=== PATIENT | female | born 1990 | race African-American/Black ===

== ENCOUNTER 2017-08-07 15:35 | Emergency (ER) | payer OTHER ==
[~2017-08-07] VITALS: Ht 172.7 cm; Wt 81.7 kg
[~2017-08-07 15:35] MED LIST: ACID CONTROL150 MG; BACTRIM DS TAB1 EACH PO; IBUPROFEN 600600 M1 PO; KEFLEX500 MG PO; LO-OVRAL-281 EACH PO; MACROBID 100 M100 M1 PO; NAPROSYN500 MG PO; NORCO 5-325 TA1 EACH PO; NORFLEX100 MG PO; POTASSIUM20 PO; PRENATAL DHA+C1 EACH; PROMETHAZINE-D120 ML PO; ULTRAM 50MG TAB50 MG PO; ZOFRAN4 MG PO
[2017-08-07] MEDS ORDERED: NAPROSYN500 MG PO (16:29)
== END 2017-08-07 16:38 | disposition home or self-care (01) ==
LOC: ER 15:35
DX: S60.021A Contusion of right index finger without damage to nail, initial encounter (principal); Z88.1 Allergy status to other antibiotic agents; W26.8XXA Contact with other sharp object(s), not elsewhere classified, initial encounter; Y93.E9 Activity, other interior property and clothing maintenance; Y92.89 Other specified places as the place of occurrence of the external cause; Y99.8 Other external cause status

== ENCOUNTER 2019-06-01 08:34 | Emergency (ER) | payer OTHER ==
[~2019-06-01] VITALS: Ht 172.7 cm; Wt 81.7 kg
[2019-06-01] MEDS ORDERED: KLOR-CON 10 ER10 MEQ PO (08:47)
[2019-06-01] MEDS ORDERED: CLEOCIN HCL150 M1 PO (08:52)
[2019-06-01] MEDS ORDERED: RAYOS5 MG PO (08:53)
[2019-06-01 09:00] LABS: URINE BILIRUBIN NEGATIVE (Negative); URINE BLOOD 1+ (Negative); URINE CLARITY CLEAR; URINE COLOR YELLOW; URINE GLUCOSE-RANDOM* NEGATIVE (Negative); URINE KETONES NEGATIVE (Negative); URINE LEUKOCYTES-REFLEX NEGATIVE (Negative); URINE NITRITE-REFLEX NEGATIVE (Negative); URINE PROTEIN (DIPSTICK) NEGATIVE (Negative); URINE UROBILINOGEN 0.2 E.U./dl (0.2-1.0)
[2019-06-01 09:01] LABS: HEMOGLOBIN 13.7 gm/dL (12.0-15.0); MCV 82.3 fL (80.0-100.0); WBC 8.4 thou/uL (4.0-11.0)
[2019-06-01 09:02] LABS: HEMATOCRIT 41.6 % (37.0-47.0); MCHC 32.9 g/dL (28.0-37.0); PLATELET COUNT 464 thou/uL (150-400); RBC 5.06 mil/uL (4.20-5.00)
[2019-06-01 09:09] LABS: POTASSIUM 3.4 mmol/L (3.5-5.1)
[2019-06-01 09:09] LABS: SQUAMOUS >10 Many /LPF (0-3); URINE WBC-REFLEX 6-15 Few /HPF (0-5)
[2019-06-01 09:10] LABS: MUCUS 0-3 Light strn/LPF (None Seen); WBC CLUMPS Few (None Seen)
[2019-06-01 09:11] LABS: URINE RBC 3-10 Few /HPF (0-2)
[2019-06-01 09:12] LABS: CASTS None Seen /LPF (None Seen); CRYSTALS None Seen /LPF (None Seen)
[2019-06-01 09:15] LABS: ALBUMIN 3.3 g/dL (3.4-5.0); TOTAL BILIRUBIN 0.3 mg/dL (<0.1-1.0)
[2019-06-01 09:38] LABS: ABSOLUTE NEUTROPHILS 6.8 thou/uL (1.4-8.2); PLATELET ESTIMATE INCREASED
[2019-06-01] MEDS ORDERED: ONDANSETRON ODT8 MG PO (10:27)
[2019-06-01] MEDS ORDERED: FLAGYL500 M1 PO (12:17)
[2019-06-01 13:00] VITALS: BP 123/82
== END 2019-06-01 13:00 | disposition home or self-care (01) ==
LOC: ER 08:34
PROVIDERS: Emergency Medicine
DX: K52.1 Toxic gastroenteritis and colitis (principal); T36.8X5A Adverse effect of other systemic antibiotics, initial encounter; A59.01 Trichomonal vulvovaginitis; E86.0 Dehydration; Z88.1 Allergy status to other antibiotic agents; Y92.89 Other specified places as the place of occurrence of the external cause